=== PATIENT | male | born 2005 | race Caucasian/White ===

== ENCOUNTER 2025-02-24 10:52 | Emergency (ER) | payer OTHER, SELFPAY ==
[2025-02-24 10:54] VITALS: BP 157/88
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
[2025-02-24 11:17] VITALS: BMI 26.0
[2025-02-24 13:51] VITALS: BP 124/75
--- NOTE | 2025-02-24 13:53 | EDRN ---
Reviewed discharge instructions with patient and his mother. Verbalized understanding. Ambulated with steady gait to the [facility].
[2025-02-24 13:54] VITALS: BP 124/75
== END 2025-02-24 13:50 | disposition home or self-care (01) ==
LOC: EMR 10:52
PROVIDERS: EMERGENCY PHYSICIAN Emergency Medicine; FAMILY PHYSICIAN Pediatrics
DX: S02.85XA Fracture of orbit, unspecified, initial encounter for closed fracture (principal); S02.2XXA Fracture of nasal bones, initial encounter for closed fracture; W21.03XA Struck by baseball, initial encounter
CPT/HCPCS: 99284; 70486